=== PATIENT | female | born 1995 | race Caucasian/White ===

== ENCOUNTER 2020-12-21 11:55 | Emergency (ER) | payer MEDICAID, SELFPAY ==
[2020-12-21 12:00] VITALS: BP 136/77; PULSE 89; RESP 16; TEMP 36.6; O2SAT 100; BMI 36.6
--- NOTE | 2020-12-21 12:19 | ED_ITS ---
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 Patient denies any vomiting, headache, photophobia, abdominal pain or chest pain. She tells me that she has dizziness when she moves her head from right to left. No ear pain, nasal congestion, rhinorrhea or sneezing. No injury or trauma. Related Data Previous Rx's Medication Instructions Recorded meclizine 25 mg PO TID PRN #10 tab 12/21/20 Allergies Allergy/AdvReac Type Severity Reaction Status Date / Time No Known Allergies Allergy Verified 12/21/20 12:02 Review of Systems Review of Systems: Yes all other systems are reviewed and are negative Constitutional: Constitutional: Reports no additional constitutional complaints, Denies body ache(s), Denies chills, Denies fever(s), Denies headache(s) and Denies weakness Eyes: Eyes: Reports no additional eye complaints and Denies change in vision ENT: Reports system reviewed and no additional complaints, except as documented, Reports dizziness, Denies headache(s), Denies nasal congestion, Den ies nasal discharge and Denies neck pain Cardiovascular: Cardiovascular: Reports no additional cardiovascular complaints, Denies chest pain, Denies leg edema and Denies dyspnea Respiratory: Respiratory: Reports no additional respiratory complaints, Denies cough and Denies dyspnea Gastrointestinal: Gastrointestinal: Reports no additional gastrointestinal complaints, Denies abdominal pain, Denies diarrhea, Reports nausea and Denies vomiting Genitourinary: Genitourinary: Reports no additional female genitourinary complaints and Denies urinary incontinence Musculoskeletal: Musculoskeletal: Reports no additional musculoskeletal com plaints, Denies back pain, Denies arthralgias, Denies joint swelling, Denies neck pain, Denies numbness and Denies tingling Integumentary/Breasts: Skin/Breast: Reports system reviewed and no additional complaints, except as docu and Denies rash Neurologic: Reports system reviewed and no additional complaints, except as documented, Denies Abnormal speech present, Reports dizziness, Denies headache(s), Denies numbness, Denies tingling and Denies weakness [facility] Past Medical History Attestation statement: The following information was validated with the patient. Source: old records reviewed and nursing notes reviewed Medical History No known health problems Social History Social History Alcohol intake: never Smoking Status: Never smoker Use of substances other than those prescribed or required for medical reasons: No Advance Directives: No Advance Directives Information Provided: No Patient : No Physical Exam Vital Signs: Vital Signs: Last Vital Signs Temp 97.8 F 12/21/20 12:00 Pulse 78 12/21/20 15:17 Resp 16 12/21/20 15:17 BP 125/59 L 12/21/20 15:17 Pulse Ox 99 12/21/20 15:17 Body Mass Index 36.6 Const: General: cooperative, healthy appearing, comfortable and no acute distress Orientation/consciousness: patient oriented x3 Limitations: no limitations HENMT: Head: Yes normal to inspection Ears: hearing grossly normal bilaterally General nose exam: Normal external nose present Face and sinus: Yes normal facial exam Mouth: Normal oral and palatal mucosa present Throat: Yes posterior oropharynx normal Eyes: General: appearance normal, both eyes and all related structures Pupils: Equal, round and reactive pupils present Neck: Neck: Yes normal visual inspection Chest: Chest palpation & inspection: normal inspection of the chest Resp: Effort & Inspection: normal respiratory effort Auscultation: clear to auscultation bilaterally Cardio: Rate: regular rate Rhythm: regular rhythm Peripheral pulses: Peripheral pulses 2+ throughout GI: Inspection: Yes normal to inspection Palpation (GI): Soft to palpation and nontender Auscultation: normal bowel sounds Back/Spine/Pelvis: Thoracic/Lumbar Spine: thoracic and lumbar spine normal to inspection Skin: General skin exam: no rashes or lesions noted Neuro: General: patient oriented x3, no focal motor deficits and normal sensation to monofilament Cranial nerves: Yes CN's II-XII intact bilaterally, Yes Equal, round and reactive pupils present, Yes Bilaterally intact EOM present, Yes Nystagmus not present, Yes Normal facial strength present and Yes Midline tongue present Cognition (Neuro): normal cognition Speech: No Abnormal speech present Gait exam (Neuro): Normal gait present Motor exam (neuro): 5/5 motor strength present throughout Sensory Exam: Normal double simultaneous stimulation for sensation Coordination: [id number] test normal, [id number] test normal and tandem gait normal Extrem: General: Yes normal to inspection, Yes no pedal edema and Yes no calf tenderness Course Course Course Narrative: 25-year-old female here with dizziness which occurs with head movement and nausea since yesterday. Normal neurological exam with no focal deficit. Stable vital signs. Likely BPPV. Will check EKG, orthostatics, UA, urine and labs. Give meclizine and reassess. 1401-EKG unremarkable. Orthostatics negative. UA shows 3+ blood but patient currently on her menses. Urine negative. Labs unremarkable. 1500-performed a Cordell-Hallpike and Eboni maneuver with complete resolution of symptoms. C/w with BPPV. Discussed findings with patient. Comfortable with discharge home. Procedures Procedure Narrative Procedure Narrative: Anderson hallpike done with noted horizontal nystagmus after 30 seconds. Eply done after. MDM - Dizziness MDM Narrative Medical decision making narrative: BPPV, electrolyte abnormality, anemia, Medical Records Attestation: I reviewed the patient's medical records. Lab Data Attestation: I reviewed the patient's lab results. Result diagrams: 12/21/20 13:15 12/21/20 13:15 Labs: Lab Results 12/21/20 12/21/20 12/21/20 Range/Units 12:10 12:10 13:15 WBC 8.8 (4.8-10.8) X10*3/uL RBC 4.27 (4.20-5.50) X10*6/uL Hgb 10.6 L (12.0-16.0) g/dl Hct 34.4 L (37-47) % MCV 80.6 (80-98) fL MCH 24.8 L (27.0-33.0) pg MCHC 30.8 L (31.0-35.0) g/dl RDW 14.4 (11.0-16.0) % Plt Count 341 (160-400) X10*3/uL MPV 10.0 (9.4-12.3) fL Immature Gran % (Auto) 0.5 H (0.0-0.4) % Neut % (Auto) 74.5 H (45-73) % Lymph % (Auto) 19.7 L (20-40) % [place] % (Auto) 4.0 (2-11) % Eos % (Auto) 1.0 (0-4) % Baso % (Auto) 0.3 (0-2) % Lymph # (Auto) 1.7 (1.2-4.9) X10*3/uL [place] # (Auto) 0.4 (0.1-1.2) X10*3/uL Eos # (Auto) 0.1 (0.0-0.4) X10*3/uL Baso # (Auto) 0.0 (0.0-0.2) X10*3/uL Abs Immat Gran (auto) 0.04 H (0.00-0.03) X10*3/uL Absolute Neuts (auto) 6.5 (2.0-8.3) X10*3/uL Absolute Nucleated RBC 0.000 (0.0-0.012) X10*3/uL Nucleated RBC % (auto) 0.0 (0.0-0.2) /100WBC Hold Blue Top Sodium (135-145) mmol/L Potassium (3.3-5.1) mmol/L Chloride (96-108) mmol/L Carbon Dioxide (22-29) mmol/L Anion Gap (12-20) BUN (9-16) mg/dL Creatinine (0.5-1.4) mg/dL Estim Creat Clear Calc Estimated GFR Random Glucose (60-115) mg/dL Calcium (8.4-10.2) mg/dL Magnesium (1.6-2.6) mg/dL Total Bilirubin (0.0-1.0) mg/dL Direct Bilirubin (0.0-0.5) mg/dL AST (5-31) U/L ALT (0-31) U/L Alkaline Phosphatase (39-117) U/L Total Protein (6.5-8.0) g/dL Albumin (3.5-5.0) g/dL Urine Color YELLOW Urine Appearance CLOUDY Urine pH 6.0 (5.0-8.0) Ur Specific [place] >= 1.030 H (1.005-1.025) Urine Protein TRACE (NEG-TRACE) MG/DL Urine Glucose (UA) NEG (NEG) MG/DL Urine Ketones NEG (NEG) MG/DL Urine Blood 3+ H (NEG) Urine Nitrite NEG (NEG) Ur Leukocyte Esterase NEG (NEG) Urine RBC 30-49 H (0) /HPF Urine WBC 0-2 (0-4) /HPF Ur Squamous Epith Cells 2+ /LPF Urine Bacteria TRACE /LPF Urine Mucus TRACE /LPF Urine Test NEGATIVE (NEGATIVE) 12/21/20 12/21/20 Range/Units 13:15 13:15 WBC (4.8-10.8) X10*3/uL RBC (4.20-5.50) X10*6/uL Hgb (12.0-16.0) g/dl Hct (37-47) % MCV (80-98) fL MCH (27.0-33.0) pg MCHC (31.0-35.0) g/dl RDW (11.0-16.0) % Plt Count (160-400) X10*3/uL MPV (9.4-12.3) fL Immature Gran % (Auto) (0.0-0.4) % Neut % (Auto) (45-73) % Lymph % (Auto) (20-40) % [place] % (Auto) (2-11) % Eos % (Auto) (0-4) % Baso % (Auto) (0-2) % Lymph # (Auto) (1.2-4.9) X10*3/uL [place] # (Auto) (0.1-1.2) X10*3/uL Eos # (Auto) (0.0-0.4) X10*3/uL Baso # (Auto) (0.0-0.2) X10*3/uL Abs Immat Gran (auto) (0.00-0.03) X10*3/uL Absolute Neuts (auto) (2.0-8.3) X10*3/uL Absolute Nucleated RBC (0.0-0.012) X10*3/uL Nucleated RBC % (auto) (0.0-0.2) /100WBC Hold Blue Top SEE NOTE Sodium 141 (135-145) mmol/L Potassium 4.0 (3.3-5.1) mmol/L Chloride 107 (96-108) mmol/L Carbon Dioxide 27 (22-29) mmol/L Anion Gap 11 L (12-20) BUN 7 L (9-16) mg/dL Creatinine 0.74 (0.5-1.4) mg/dL Estim Creat Clear Calc 122.7 Estimated GFR > 60 Random Glucose 95 (60-115) mg/dL Calcium 9.1 (8.4-10.2) mg/dL Magnesium 2.2 (1.6-2.6) mg/dL Total Bilirubin 0.6 (0.0-1.0) mg/dL Direct Bilirubin 0.2 (0.0-0.5) mg/dL AST 14 (5-31) U/L ALT 14 (0-31) U/L Alkaline Phosphatase 84 (39-117) U/L Total Protein 7.4 (6.5-8.0) g/dL Albumin 4.1 (3.5-5.0) g/dL Urine Color Urine Appearance Urine pH (5.0-8.0) Ur Specific [place] (1.005-1.025) Urine Protein (NEG-TRACE) MG/DL Urine Glucose (UA) (NEG) MG/DL Urine Ketones (NEG) MG/DL Urine Blood (NEG) Urine Nitrite (NEG) Ur Leukocyte Esterase (NEG) Urine RBC (0) /HPF Urine WBC (0-4) /HPF Ur Squamous Epith Cells /LPF Urine Bacteria /LPF Urine Mucus /LPF Urine Test (NEGATIVE) ECG Data Attestation: I personally reviewed and interpreted this ECG as follows: ECG interpretation date: 12/21/20 ECG interpretation time: 12:36 Interpretation: Normal sinus rhythm with a rate of 73, normal NV, normal QRS normal QTC Discharge Plan Discharge Clinical Impression: Benign paroxysmal positional vertigo Patient Disposition: Home, Self-Care Instructions: Benign Paroxysmal Positional Vertigo (ED) Prescriptions: New meclizine 25 mg tablet 25 mg PO TID PRN (Reason: dizziness) Qty: 10 RF: 0 Referrals: [place],[facility] [Primary Care Provider] - 2 days Stand Alone Forms: Work/School Release Interventions: ED Discharge Assessment Last Done: 12/21/20 15:26 Discharge Date/Time: 12/21/20 15:27 Print Language: [place] Citizen
--- NOTE | 2020-12-21 12:22 | ECG_ITS ---
Test Reason : DIZZINESS Blood Pressure : / mmHG Vent. Rate : 073 BPM Atrial Rate : 073 BPM P-R Int : 124 ms QRS Dur : 082 ms QT Int : 418 ms P-R-T Axes : 026 037 -04 degrees QTc Int : 460 ms Normal sinus rhythm Normal ECG No previous ECGs available Referred By: Kiana Sherman Electronically Signed By:Jacky Israel
[2020-12-21 12:37] VITALS: BP 124/68; PULSE 79
[2020-12-21 12:38] VITALS: BP 116/79; BP 121/71; PULSE 77; PULSE 84
[2020-12-21 12:49] LABS: Glucose Urine UA NEG (NEG); Leukocyte Esterase Urine NEG (NEG); Nitrite Urine NEG (NEG); Specific Gravity - Urine >= 1.030 (1.005-1.025); Urine Blood 3+ (NEG); Urine Ketones NEG (NEG); Urine Protein TRACE MG/DL (NEG-TRACE)
[2020-12-21 12:51] LABS: Appearance Urine CLOUDY; Color Urine YELLOW
[2020-12-21 12:54] LABS: UPreg QC Valid YES; Urine Pregnancy NEGATIVE (NEGATIVE)
[2020-12-21 13:02] LABS: Bacteria Urine TRACE /LPF; Mucus Urine TRACE /LPF; RBC Urine 30-49 /HPF (0); Squamous Epithelial Cell Urine 2+ /LPF; WBC Urine 0-2 /HPF (0-4)
[2020-12-21 13:19] LABS: MANUAL DIFF FLAG NO
[2020-12-21 13:21] LABS: Basophils Percent Auto 0.3 % (0-2); Eosinophils Absolute Auto 0.1 X10*3/uL (0.0-0.4); Hematocrit 34.4 % (37-47); Hemoglobin 10.6 g/dl (12.0-16.0); Imm Gran Abs Auto 0.04 X10*3/uL (0.00-0.03); Imm Gran Pct Auto 0.5 % (0.0-0.4); Lymphocytes Absolute Auto 1.7 X10*3/uL (1.2-4.9); Lymphocytes Percent Auto 19.7 % (20-40); Mean Corpuscular HGB Conc 30.8 g/dl (31.0-35.0); Mean Corpuscular Hemoglobin 24.8 pg (27.0-33.0); Mean Corpuscular Volume 80.6 fL (80-98); Monocytes Absolute Auto 0.4 X10*3/uL (0.1-1.2); Neutrophils Absolute Auto 6.5 X10*3/uL (2.0-8.3); Neutrophils Percent Auto 74.5 % (45-73); Platelet Count 341 X10*3/uL (160-400); Red Blood Count 4.27 X10*6/uL (4.20-5.50); Red Cell Distribution Width 14.4 % (11.0-16.0); White Blood Count 8.8 X10*3/uL (4.8-10.8)
[2020-12-21 13:49] LABS: Alanine Aminotransferase 14 U/L (0-31); Albumin Level 4.1 g/dL (3.5-5.0); Alkaline Phosphatase 84 U/L (39-117); Anion Gap 11 (12-20); Aspartate Amino Transferase 14 U/L (5-31); Bilirubin Direct 0.2 mg/dL (0.0-0.5); Bilirubin Total 0.6 mg/dL (0.0-1.0); Blood Urea Nitrogen 7 mg/dL (9-16); Calcium 9.1 mg/dL (8.4-10.2); Carbon Dioxide 27 mmol/L (22-29); Chloride 107 mmol/L (96-108); Creatinine Clr Calc Pharmacy 122.7; Estimated Glomerular Filt Rate > 60; Glucose Random 95 mg/dL (60-115); Magnesium 2.2 mg/dL (1.6-2.6); Sodium 141 mmol/L (135-145); Total Protein 7.4 g/dL (6.5-8.0)
[2020-12-21] MEDS: Meclizine HCl 25 MG TABLET PO (14:01)
[2020-12-21 15:16] VITALS: BP 125/58; PULSE 78
[2020-12-21 15:17] VITALS: BP 112/54; BP 123/54; BP 125/59; PULSE 78; PULSE 80; PULSE 90; RESP 16; O2SAT 99
== END 2020-12-21 15:27 | disposition home or self-care (01) ==
PROVIDERS: Nurse Practitioner Family; Emergency Provider Emergency Medicine
DX: H81.10 Benign paroxysmal vertigo, unspecified ear (principal)
CPT/HCPCS: 36415; 80048; 80076; 81001; 81025; 83735; 85025; 93005; 99283; 99285

== ENCOUNTER 2025-02-11 03:16 | Emergency (ER) | payer MEDICAID, SELFPAY ==
[2025-02-11 03:19] VITALS: BP 120/69; PULSE 99; RESP 20; TEMP 36.1; O2SAT 100; BMI 39.0
[2025-02-11 03:52] LABS: IDNOW Serial# 6674DD1D; Strep A Nucleic Acid Positive (Negative)
--- NOTE | 2025-02-11 04:06 | ED_ITS ---
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 She notes it is painful to swallow and she has pain radiating to ears. She does have children but she sta nayeli no one else is sick complaint: sore throat Onset (ago): week(s) (1) Location: mouth Radiation: non-radiation Severity: moderate Quality: aching Pain Consistency: constant Relieving factors: none Exacerbating factors: other (swallowing) Associated symptoms: malaise Treatments prior to arrival: none Related Data Previous Rx's ?Medication ?Instructions ?Recorded meclizine 25 mg tablet 25 mg PO TID PRN dizziness # 10 tabs 12/21/20 amoxicillin 500 mg tablet 500 mg PO BID #19 tabs 02/11 Allergies Allergy/AdvReac Type Severity Reaction Status Date / Time No Known Allergies Allergy Verified 02/11/25 03:21 Review of Systems Review of Systems: Constitutional : No Fever, No Chills, No Fatigue ENT/Mouth :pos sore throat, No Rhinorrhea Eyes: No Eye Pain, No Swelling, No Redness Cardiovascular : No Chest Pain, No SOB, No Dyspnea on Exertion Respiratory : No Cough, No Sputum Gastrointestinal : No Nausea, No Vomiting, No Diarrhea, No abdominal Pain Genitourinary : No Dysuria, No Urinary Frequency, No Hematuria, Musculoskeletal : No joint pain, No Myalgias, No Joint Swelling Skin : No Skin Lesions, No rash Neuro : No Weakness, No Numbness, No Dizziness, no Headache All other systems reviewed and are negative [facility] Past Medical History Attestation statement: The following information was validated with the patient. Source: old records reviewed Medical History No known health problems Social History Social History (Updated 02/11/25 @ 04:20 by Vy Hylton DO) Alcohol intake: never Patient Tobacco Use Status: Never used Tobacco Physical Exam ED Vital Signs: Vital Signs - 24 hr 02/11/25 03:19 Temperature 97.0 F Pulse Rate 99 Respiratory Rate 20 Blood Pressure 120/69 Pulse Oximetry 100 Oxygen Delivery Method Room Air BMI result Body Mass Index 39.0 Appearance: Alert. Oriented X3. No acute distress. Eyes: Pupils equal, round and reactive to light. ENT: Pharynx erythema moderate swelling both tonsils mild exudates, no stridor, no drooling, uvula is midline, bilateral tender LAD in neck, can look up to ceiling Neck: Normal inspection. Neck supple. CVS: Normal heart rate and rhythm. Pulses normal. Respiratory: No respiratory distress. Breath sounds normal. Abdomen: Soft and nontender. Skin: Skin warm and dry. Normal skin color. Normal skin turgor. Extremities: No lower extremity edema. No calf ttp Neuro: Oriented X 3. No motor deficit. No sensory deficit. 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 Differential Diagnosis Differential Diagnoses: The differential diagnosis associated with the presentation includes strep throat, pharyngitis Admission/Observation Consideration of admission/observation: Escalation of care including admission/observation considered not toxic can be managed as an outpatient Lab Data [facility] Lab Attestation statement: I reviewed the patient's lab results. Labs: Lab Results 02/11/25 Range/Units 03:34 S. pyogenes GrpA TOSHA Positive A (Negative) External Record Review External record reviewed: Outpatient record Prescription Management I considered prescription management with: Antibiotic Discharge Plan Discharge Clinical Impression: Strep throat Patient Disposition: Home, Self-Care Instructions: Strep Throat (ED) Additional Instructions: throw away toothbrush in 24 hours stay hydrated take antibiotic with food return for worsening symptoms or any other concerns On amoxicillin, softer bowel movements are to be expected. Call your provider if you move your bowels more than 4 times a day, your bowel movements are almost all liquid, or you get a rash.? Prescriptions: New amoxicillin 500 mg tablet 500 mg PO BID Qty: 19 0RF No Action meclizine 25 mg tablet 25 mg PO TID PRN (Reason: dizziness) Qty: 10 0RF Stand Alone Forms: Work/School Release Print Language: [place]er
--- OUTSIDE RECORDS SUMMARY | 2025-02-11 04:08 | XMS_ITS | Clinical Summary ---
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 Name Role Phone Unavailable Primary Care Provider Unavailabl e Social History Tobacco Use Types Packs/Day Years Used Date Smoking Tobacco: Never Assessed Comments Unknown Sex and Gender Information Value Date Recorded Sex Assigned at Female 06/12/2022 10:40 AM EDT Legal Sex Female 10:40 AM EDT Gender Identity Female 06/12/2022 10:40 AM EDT Sexual Orientation Straight 06/12/2022 10 :40 AM EDT Last Filed Vital Signs Vital Sign Reading Time Taken Comments Blood Pressure 122/80 02/08/2022 12:06 AM EDT Pulse 68 02/08/2022 12:06 AM EDT Temperature - - Respiratory Rate - - Oxygen Saturation - - Inhaled Oxygen Concentration - - Weight 105 kg (232 lb 3.2 oz) 02/08/2022 12:06 A M EDT Height 161 cm (5' 3.38 ) 02/08/2022 12:06 AM EDT Body Mass Index 40.64 02/08/2022 12:06 AM EDT Plan of Treatment Health Maintenance Due Date Last Done Comments Depression Screening 1996 HIV Screening 1996 Disability Screening 1996 Alcohol/Substance Use Screening 2008 Tobacco Screening 2008 Family Planning (PISQ) 2011 Hepatitis C Screening 2014 DTaP/Tdap/Td Vaccines (1 - Tdap) 2015 Hepatitis B Vaccines (1 of 3 - 19+ 3-dose series) 2015 Pap Smear 2017 COVID-19 Vaccine ( - 2023-2 5 season) 2024 Influenza Vaccine (#1) 2025 Zoster Vaccines (1 of 2) 2046 RSV Patients and Pa tients Aged 60 years or older (1 - 1-dose 75+ series) 2071 HIB Vaccines Aged Out No longer eligi ble based on patient's age to complete this topic HPV Vaccines Aged Out No longer eligi ble based on patient's age to complete this topic Hepatitis A Vaccines Aged Out No long er eligible based on patient's age to complete this topic IPV Vaccines Aged Out No longer eligi ble based on patient's age to complete this topic Meningococcal B Vaccine Aged Out No l onger eligible based on patient's age to complete this topic Meningococcal Vaccine Aged Out No izzy anshu eligible based on patient's age to complete this topic Pneumococcal Vaccine: Pediat rics (0 to 5 Years) and At-Risk Patients (6 to 49) Years Aged Out No longer eligible b ased on patient's age to complete this topic RSV under 20 months Aged Out No longe r eligible based on patient's age to complete this topic Rotavirus Vaccines Aged Out No longer eligible based on patient's age to complete this topic
--- OUTSIDE RECORDS SUMMARY | 2025-02-11 04:08 | XMS_ITS | Encounter Summary ---
Author Organization [facility] Address [address] [place] [address] Care Team Providers Care Land Economist Name Role Phone Unknown Primary Care Provider [phone] Ami Mancuso MD Unavailable [phone] Encounter Details Date Type Department Care Team (Late st Contact Info) Description 02/20/2020 Abstract [facility] Maternal Medicine [place] [address] [place] [id number] Kim Crane, MS,[facility] [address] [place] [address] Social History Tobacco Use Types Packs/Day Years Used Date Smoking Tobacco: Never Assessed Comments Yes Sex and Gender Information Value Date Recorded Sex Assigned at Not on file Legal Sex Female 10:25 AM EDT Gender Identity Not on file Sexual Orientation Not on file COVID-19 Exposure Response Date Recorded In the last month, have you been in contact with someone who was confirmed or suspected to have Coronavirus / COVID-19? Unable to assess 02/20/2020 1:45 PM EDT documented as of this encounter Plan of Treatment Not on file documented as of this encounter Visit Diagnoses Not on filedocumented in this encounter Care Teams Land Economist Relationship Specialty Start Date End Date Unknown Unknow Provider Address PCP - General 02/20/20 Ami Mancuso MD [address] [place] [id number] PCP - OBGYN Obstetrics and Gynecology 02/20/20 documented as of this encounter
[2025-02-11] MEDS: Ibuprofen Oral Susp 200 MG/10 ML ORAL.SUSP 400 MG PO (04:12)
[2025-02-11 04:16] VITALS: BP 124/73; PULSE 82; RESP 16; TEMP 36.6; O2SAT 99
== END 2025-02-11 04:18 | disposition home or self-care (01) ==
PROVIDERS: Emergency Provider Emergency Medicine
DX: J02.0 Streptococcal pharyngitis (principal); B95.0 Streptococcus, group A, as the cause of diseases classified elsewhere; H92.03 Otalgia, bilateral
CPT/HCPCS: 87651; 99283; J1100

== ENCOUNTER 2025-05-07 13:50 | Outpatient (REF) | payer MEDICAID, SELFPAY ==
--- OUTSIDE RECORDS SUMMARY | 2025-05-07 13:00 | XMS_ITS | Encounter Summary ---
Author Organization [employer] Address [address] [facility] [address] [place] [address] Care Team Providers Care Electrician Helper [employer] Name Role Phone Carolyn Robert Primary Care Provider [phone] Encounter Details Date Type Department Care Team ([facility] st Contact Info) Description 05/07/2025 1:00 PM EDT Office Visit [facility] [address] [place] [address] Carolyn Robert FNP [address] [place] [address] Encounter for immunization (Primary Dx); Adult wellness visit Social History Tobacco Use Types Packs/Day Years Used Date Smoking Tobacco: Never Passive Smoke Exposure: Never Smokeless Tobacco: Never Tobacco Cessation:Counseling Given: Not Answered Depression Answer Date Recorded Patient Health Questionnaire-9 Score 2 05/07/2025 Patient Health Questionnaire-9 Score 2 05/07/2025 Last PHQ-9: Questionnaire Data Not on file 0 05/07/2025 Housing Stability Answer Date Recorded What is your housing situation today? I have [facility] 05/07/[address] you li ve. Do you have problems with any of the following? None of the above 05/07/2025 Food Insecurity Answer Date Recorded Within the past 12 months, y ou worried that your food would run out before you got money to buy more: Never True 05/07/2025 Within the past 12 months,th e food you bought just didn't last and you didn't have enough money to get more: Never True Transportation Answer Date Recorded In the past 12 months, has l ack of transportation kept you from medical appts, meetings, work or from getting things needed for daily living? No 05/07/2025 Utilities Answer Date Recorded In the past 12 months, has t he electric, gas, oil or water company threatened to shut off services in your home? No 05/07/2025 Depression Answer Date Recorded Patient Health Questionnaire-2 Score 1 05/07/2025 Internet Access Answer Date Recorded Internet Access Q1 Yes 05/07/2025 Internet Access Q2 Not on file 05/07/2025 Comments Unknown Sex and Gender Information Value Date Recorded Sex Assigned at Female 06/12/2022 10:40 AM EDT Legal Sex Female 10:40 AM EDT Gender Identity Female 06/12/2022 10:40 AM EDT Sexual Orientation Straight 06/12/2022 10 :40 AM EDT documented as of this encounter Last Filed Vital Signs Vital Sign Reading Time Taken Comments Blood Pressure 118/74 05/07/2025 1:01 PM EDT Pulse 103 05/07/2025 1:01 PM EDT Temperature 36.9 C (98.4 F) 05/07/2025 1:01 PM EDT Respiratory Rate 16 05/07/2025 1:01 PM EDT Oxygen Saturation 99% 05/07/2025 1:01 PM EDT Inhaled Oxygen Concentration - - Weight 102 kg (225 lb 2 oz) 05/07/2025 1:01 PM E DT Height 160.5 cm (5' 3.19 ) 05/07/2025 1:01 PM ED T Body Mass Index 39.64 05/07/2025 1:01 PM EDT documented in this encounter Functional Status * Over the past 2 weeks, how often have you been bothered by any of the following problems? Question Answer Date of Assessment Author Patient Health Questionnaire -2 Score 1 05/07/2025 1:44 PM EDT Gila Yoon MA * Little interest or pleasure in doing things Answer Date of Assessment Author Several days 05/07/2025 1:44 PM EDT Gila Slater MA * Feeling down, depressed, or hopeless Answer Date of Assessment Author Not at all 05/07/2025 1:44 PM EDT Gila Slater MA * Trouble falling or staying asleep, or sleeping too much Answer Date of Assessment Author Not at all 05/07/2025 1:44 PM EDT Gila Slater MA * Feeling tired or having little energy Answer Date of Assessment Author Several days 05/07/2025 1:44 PM EDT Gila Slater MA * Poor appetite or overeating Answer Date of Assessment Author Not at all 05/07/2025 1:44 PM EDT Gila Slater MA * Feeling bad about yourself - or that you are a failure or have let yourself or your family down Answer Date of Assessment Author Not at all 05/07/2025 1:44 PM EDT Gila Slater MA * Trouble concentrating on things, such as reading the newspaper or watching television Answer Date of Assessment Author Not at all 05/07/2025 1:44 PM EDT Gila Slater MA * Moving or speaking so slowly that other people could have noticed? Or the opposite - being so fidgety or restless that you have been moving around a lot more than usual. Answer Date of Assessment Author Not at all 05/07/2025 1:44 PM EDT Gila Slater MA * Thoughts that you would be better off or hurting yourself in some way Answer Date of Assessment Author Not at all 05/07/2025 1:44 PM EDT Gila Slater MA * Patient Health Questionnaire-9 Score Answer Date of Assessment Author 2 05/07/2025 1:44 PM EDT Gila Slater MA * How difficult have these problems made it for you to do your work, take care of things at home, or get along with other people? Answer Date of Assessment Author Not difficult at all 05/07/2025 1:44 PM EDT Gila Farrell MA * Over the last 2 weeks, how often have you been bothered by any of the following problems? Question Answer Date of Assessment Author Feeling nervous, anxious, or on edge 1 05/07/2025 1:44 PM EDT Gila Yoon MA Not being able to stop or control worrying 0 05/07/2025 1:44 PM EDT Gila Yoon MA Worrying too much about different things 0 05/07/2025 1:44 PM EDT Gila Yoon MA Trouble relaxing 0 05/07/2025 1:44 PM EDT Gila Davis MA Being so restless that it is hard to sit still 0 05/07/2025 1:44 PM EDT Gila Yoon MA Becoming easily annoyed or irritable 1 05/07/2025 1:44 PM EDT Gila Yoon MA Feeling afraid as if somethi ng awful might happen 0 05/07/2025 1:44 PM EDT Gila Yoon MA MAGUI-7 Total Score 2 05/07/2025 1:44 PM EDT Gila Yoon MA documented as of this encounter Plan of Treatment Upcoming Encounters Date Type Department Care Team (Late st Contact Info) Description 06/04/2025 10:30 AM EDT Procedure Visit [facility] [address] [place] [address] Mela Chin CNM [address] [place] [address] Scheduled Orders Name Type Priority Associated Diagnoses Orde r Schedule Comprehensive Metabolic Panel Lab Routine Adult wellness visit Expected: 05/07/2025 (Approximate), Expires: 05/06/2026 Hepatitis B Core Antibody, Total Lab Routine Adult wellness visit Expected: 05/07/2025 (Approximate), Expires: 05/06/2026 TSH Lab Routine Adult wellness visit Expected: 05/07/2025 (Approximate), Expires: 05/06/2026 Hepatitis B Surface Antibody, Qualitative Lab Routine Adult wellness visit Expected: 05/07/2025 (Approximate), Expires: 05/06/2026 Hepatitis B surface antigen, EIA Lab Routine Adult wellness visit Expected: 05/07/2025 (Approximate), Expires: 05/06/2026 Hepatitis C Antibody with Reflex to HCV, RNA, Quantitative, Real-Time PCR Lab Routine Adult wellness visit Expected: 05/07/2025, Expires: 05/06/2026 HIV-1/2 Antigen and Antibodies, Fourth Generation, with Reflexes Lab Routine Adult wellness visit Expected: 05/07/2025 (Approximate), Expires: 05/06/2026 Lipid Panel, Standard Lab Routine Adult wellness visit Expected: 05/07/2025 (Approximate), Expires: 05/06/2026 documented as of this encounter Procedures Procedure Name Priority Date/Time Associated Diagnosis Comments CHLAMYDIA/TRICHOMONAS /NEISSERIA GONORRHOEAE, PCR, URINE Routine 05/07/2025 1:55 PM EDT Adult wellness visit CBC WITH AUTO DIFFERENTIAL Routine 05/07/2025 1:55 PM EDT Adult wellness visit HEMOGLOBIN A1C Routine 05/07/2025 1:55 PM EDT Adult wellness visit documented in this encounter Results * Chlamydia/N. Gonorrhoeae, PCR, Urine (05/07/2025 1:55 PM EDT) CT PCR, Urine NOT DETECTED Not Detect. [facility] Comment:A not detected test result does not exclude the possibilityof infection because test results can be affected byimproper specimen collection, concurrent antibiotic therapy,or the number of organisms in the specimen which may bebelow the sensitivity of the test. As with many diagnostictests, results from the Xpert CT/NG assay should beinterpreted in conjunction with other laboratory andclinical data available to the clinician.The Xpert CT/NG assay should not be used for the evaluationof suspected sexual abuse or for other medico-legalindications. Additional testing is recommended in anycircumstance when false positive or false negative resultscould lead to adverse medical, social or psychologicalconsequences. NG PCR, Urine NOT DETECTED Not Detect. [facility] Comment:A not detected test result does not exclude the possibilityof infection because test results can be affected byimproper specimen collection, concurrent antibiotic therapy,or the number of organisms in the specimen which may bebelow the sensitivity of the test. As with many diagnostictests, results from the Xpert CT/NG assay should beinterpreted in conjunction with other laboratory andclinical data available to the clinician.The Xpert CT/NG assay should not be used for the evaluationof suspected sexual abuse or for other medico-legalindications. Additional testing is recommended in anycircumstance when false positive or false negative resultscould lead to adverse medical, social or psychologicalconsequences. Urine (Urine, Random) 05/07/2025 1:55 PM EDT 05/07/2025 4:00 PM EDT [facility] URINE ORDERABLES Final Res ult Performing Organization Address [facility] Co de Phone Number [facility] [address] [place] [address] [phone] * Hemoglobin A1c (05/07/2025 1:55 PM EDT) Hemoglobin A1c 4.9 <6.0 % [facility] Comment:Hemoglobin A1C Refer ence Range Adults: 4.8 - 6.0 % Non diabetic: < 6.0 % Goal: < 7.0 %Additional Action Suggested: > 8.0 %Note: Hemoglobin A1c results are invalid for patients with abnormal amounts of HbF. Blood transfusions may impact the HbA1c concentration in the patient sample. Estimated Average Glucose 94 mg/dL [facility] Comment:eAG = Estimated ave rage glucose which is %A1C expressed asaverage glucose, using the formula of the U2R-SjccuyzTjhfrlk Glucose study (ADAG), Diabetes Care, Vol.31,#8,Mar. 2007 Blood Venous blood specimen / Unknown 05/07/2025 1:55 PM EDT 05/07/2025 5:56 PM EDT [facility] BLOOD ORDERABLES Final Res ult Performing Organization Address [facility]/ZIP Co de Phone Number [facility] [address] [place] [phone] * (ABNORMAL) CBC auto differential (05/07/2025 1:55 PM EDT) White Blood Count 13.8(H) 4.8 - 10.8 X10*3/uL [facility] Red Blood Count 4.78 4.20 - 5.50 X10*6/uL [facility] Hemoglobin 8.9(L) 12.0 - 16.0 g/dl [facility] Hematocrit 31.4(L) 37.0 - 47.0 % [facility] Mean Corpuscular Volume 65.7(L) 80.0 - 98.0 fL [facility] Mean Corpuscular Hemoglobin 18.6(L) 27.0 - 33.0 pg [facility] Mean Corpuscular HGB Conc 28.3(L) 31.0 - 35.0 g/dl [facility] Red Cell Distribution Width 19.1(H) 11.0 - 16.0 % [facility] Platelet Count 553(H) 160 - 400 X10*3/uL [facility] Mean Platelet Volume 10.4 9.4 - 12.[address] [facility] Neutrophils Percent Auto 69.8 45 - 73 % [facility] Imm Gran Pct Auto 0.3 0.0 - 0.4 % [facility] Lymphocytes Percent Auto 23.3 20 - 40 % [facility] Monocytes Percent Auto 5.4 2 - 11 % [facility] Eosinophils Percent Auto 0.6 0 - 4 % [facility] Basophils Percent Auto 0.6 0 - 2 % [facility] NRBC Pct Auto 0.0 0.0 - 0.2 /100WBC [facility] Neutrophils Absolute Auto 9.7(H) 2.0 - 8.3 x10*3/uL [facility] Imm Gran Abs Auto 0.04(H) 0.00 - 0.03 X10*3/uL [facility] Lymphocytes Absolute Auto 3.2 1.2 - 4.9 X10*3/uL [facility] Monocytes Absolute Auto 0.7 0.1 - 1.2 X10*3/uL [facility] Eosinophils Absolute Auto 0.1 0.0 - 0.4 X10*3/uL [facility] Basophils Absolute Auto 0.1 0.0 - 0.2 X10*3/uL [facility] NRBC Abs Auto 0.000 0.0 - 0.012 X10*3/uL [facility] Blood Venous blood specimen / Unknown 05/07/2025 1:55 PM EDT 05/07/2025 5:56 PM EDT [facility] BLOOD ORDERABLES Final Res ult [facility] [address] [place] [phone] documented in this encounter Visit Diagnoses Diagnosis Encounter for immunization- Primary Adult wellness visit documented in this encounter Additional Health Concerns Assessment Noted Time PHQ-9 Depression Total Score: 2 05/07/20 25 1:44 PM EDT documented as of this encounter Care Teams Electrician Helper [employer]otive Relationship Specialty Start Date End Date Carolyn Robert FNP [address] [place] [phone] PCP - General Family Medicine 05/06/25 documented as of this encounter
[2025-05-07 17:54] LABS: CT PCR Urine NOT DETECTED (Not Detect.); NG PCR Urine NOT DETECTED (Not Detect.)
[2025-05-07 18:01] LABS: MANUAL DIFF FLAG NO
[2025-05-07 18:07] LABS: Hematocrit 31.4 % (37.0-47.0); Hemoglobin 8.9 g/dl (12.0-16.0); Imm Gran Abs Auto 0.04 X10*3/uL (0.00-0.03); Imm Gran Pct Auto 0.3 % (0.0-0.4); Lymphocytes Absolute Auto 3.2 X10*3/uL (1.2-4.9); Mean Corpuscular HGB Conc 28.3 g/dl (31.0-35.0); Mean Corpuscular Hemoglobin 18.6 pg (27.0-33.0); Mean Corpuscular Volume 65.7 fL (80.0-98.0); NRBC Abs Auto 0.000 X10*3/uL (0.0-0.012); NRBC Pct Auto 0.0 /100WBC (0.0-0.2); Platelet Count 553 X10*3/uL (160-400); Red Blood Count 4.78 X10*6/uL (4.20-5.50); White Blood Count 13.8 X10*3/uL (4.8-10.8)
--- OUTSIDE RECORDS SUMMARY | 2025-05-07 18:21 | XMS_ITS | Encounter Summary ---
Author Organization [employer] Address [address] [facility] [address] [place] [address] Care Team Providers Care Cable Testers Helper Name Role Phone Carolyn Robert FOX Primary Care Provider [phone] Encounter Details Date Type Department Care Team (Latest Contact Info) Description 05/07/2025 Travel Social History Tobacco Use Types Packs/Day Years Used Date Smoking Tobacco: Never Passive Smoke Exposure: Never Smokeless Tobacco: Never Depression Answer Date Recorded Patient Health Questionnaire-9 [...] AM EDT documented as of this encounter Functional Status * Over the [...] Description 06/04/2025 10:30 AM EDT Procedure Visit [facility] [address] [place] [address] Mela Chin CNM [address] [place] [address] documented as of this encounter Visit Diagnoses Not on filedocumented in this encounter Additional Health Concerns Assessment Noted Time PHQ-9 Depression Total Score: 2 05/07/20 1:44 PM EDT documented as of this encounter Care Teams Cable Testers Helper Relationship Specialty Start Date End Date Carolyn Robert FNP [address] [place] [address] PCP - General Family Medicine 05/06/25 documented as of this encounter
--- OUTSIDE RECORDS SUMMARY | 2025-05-07 18:21 | XMS_ITS | Clinical Summary ---
Author Organization [employer] Address [address] [place] [phone] Care Team Providers Care Drafter Marine Name Role Phone Carolyn Robert Primary Care Provider [phone] Allergies No known active allergies Medications No known medications Active Problems Problem Noted Date Diagnosed Date Maternal care for low transv erse scar from previous delivery 02/20/2020 Overview (05/07/2025): Added automatically from request for surgery [id number] Encounters Date Type Department Care Team Description 05/07/2025 1:00 PM EDT Office Visit [address] [address] Carolyn Robert FNP Encounter for immunization (Primary Dx); Adult wellness visit 05/07/2025 Travel 05/06/[address] [address] Carolyn Robert FNP CHARTPREP 04/30/2025 Patient Outreach [address] [address] Carolyn Robert FNP Pre-visit Planning ((Unable to reach for PVP screening, LVM) to be completed in office ) 04/07/[address] [address] Tucker Mcnair MD 03/10/[address] [address] Tucker Mcnair MD new pt appt 02/11/2025 Orders Only GENERIC EXTERNAL DATA DEPARTMENT Provider, Generic External Data from Last 3 Months Immunizations Immunization Administration Dates Next Due Influenza injectable quadrivalent preservative f ree 06/25/2022 MMR 06/24/2022 Tdap 2022 Family History Medical History Relation Name Comments Diabetes Brother Kidney disease Brother Eczema Daughter Diabetes Mother Hyperlipidemia Mother Hypertension Mother Kidney disease Mother Diabetes Sister Kidney disease Sister Eczema Son Relation Name Status Comments Brother Daughter Mother Sister Son Social History Tobacco Use Types Packs/Day Years [...] Mass Index 39.64 05/07/2025 1:01 PM EDT Plan of Treatment Upcoming Encounters Date Type Department Care Team (Late st Contact Info) Description 06/04/2025 10:30 AM EDT Procedure Visit [facility] [address] [place], [place] [phone] Mela Chin, [facility] [address] [place], [place] [phone] Health Maintenance Due Date Last Done Comments HIV Screening 1996 Disability Screening 1996 Family Planning (PISQ) 2011 HPV Vaccines (1 - 3-dose series) 2011 Hepatitis C Screening 2014 Hepatitis B Vaccines (1 of 3 - 19+ 3-dose series) 2015 Pap Smear 2017 COVID-19 Vaccine ( - 2023-2 5 season) 2025 Influenza Vaccine (#1) 2025 06/25/2022 Alcohol/Substance Use Screening 05/07/2026 05/07/2025 Depression Screening 05/07/2026 05/07/2025, 05/07/2025 SDOH Screening 05/07/2026 05/07/2025 Tobacco Screening 05/07/2026 05/07/2025 DTaP/Tdap/Td Vaccines (2 - T d or Tdap) 2032 2022 Zoster Vaccines (1 of 2) 2046 RSV Patients and Patients Aged 60 years or older (1 - [...] age to complete this topic Pneumococcal Vaccine: Pediatrics (0 to 5 Years) and At-Risk Patients (6 to 49) Years Aged Out No longer eligible b ased on patient's age to complete this topic RSV under 20 months Aged Out No longe r eligible based on patient's age to complete this topic Rotavirus Vaccines Aged Out No longer eligible based on patient's age to complete this topic Procedures Procedure Name Priority Date/Time Associated Diagnosis Comments HEMOGLOBIN A1C Routine 05/07/2025 1:55 PM EDT Adult wellness visit CBC WITH AUTO DIFFERENTIAL Routine 05/07/2025 1:55 PM EDT Adult wellness visit CHLAMYDIA/TRICHOMONAS /NEISSERIA GONORRHOEAE, PCR, URINE Routine 05/07/2025 1:55 PM EDT Adult wellness visit STREP A NUCLEIC ACID Routine 02/11/2025 3:34 AM EDT from Last 3 Months Results * Chlamydia/N. Gonorrhoeae, PCR, Urine (05/07/2025 1:55 PM EDT) CT PCR, Urine NOT DETECTED Not Detect. [facility] Comment:A not detected test result does [...] NG PCR, Urine NOT DETECTED Not Detect. [facility] Comment:A not detected test result does [...] PM EDT 05/07/2025 4:00 PM EDT Carolyn Robert [facility] URINE ORDERABLES Final Res ult [facility] [address] [place] [address] [phone] * (ABNORMAL) CBC auto differential (05/07/2025 1:55 PM EDT) White Blood Count 13.8(H) 4.8 - 10.8 X10*3/uL [facility] Red Blood Count 4.78 4.20 - 5.50 X10*6/uL [facility] Hemoglobin 8.9(L) 12.0 - 16.0 g/dl [facility] Hematocrit 31.4(L) 37.0 - 47.0 % [facility] Mean Corpuscular Volume 65.7(L) 80.0 - 98.0 fL [facility] Mean Corpuscular Hemoglobin 18.6(L) 27.0 - 33.0 pg [facility] Mean Corpuscular HGB Conc 28.3(L) 31.0 - 35.0 g/dl [facility] Red Cell Distribution Width 19.1(H) 11.0 - 16.0 % [facility] Platelet Count 553(H) 160 - 400 X10*3/uL [facility] Mean Platelet Volume 10.4 9.4 - 12.3 fL [facility] Neutrophils Percent Auto 69.8 45 - 73 % [facility] Imm Gran Pct Auto 0.3 0.0 - 0.4 % [facility] Lymphocytes Percent Auto 23.3 20 - 40 % [facility] Monocytes Percent Auto 5.4 2 - 11 % [facility] Eosinophils Percent Auto 0.6 0 - 4 % [facility] Basophils Percent Auto 0.6 0 - 2 % [facility] NRBC Pct Auto 0.0 0.0 - 0.2 /100WBC [facility] Neutrophils Absolute Auto 9.7(H) 2.0 - 8.3 x10*3/uL [facility] Imm Gran Abs Auto 0.04(H) 0.00 - 0.03 X10*3/uL [facility] Lymphocytes Absolute Auto 3.2 1.2 - 4.9 X10*3/uL [facility] Monocytes Absolute Auto 0.7 0.1 - 1.2 X10*3/uL [facility] Eosinophils Absolute Auto 0.1 0.0 - 0.4 X10*3/uL [facility] Basophils Absolute Auto 0.1 0.0 - 0.2 X10*3/uL [facility] NRBC Abs Auto 0.000 0.0 - 0.012 X10*3/uL [facility] Blood Venous blood specimen / Unknown 05/07/2025 1:55 PM EDT 05/07/2025 5:56 PM EDT us Carolyn Robert [employer] LAB BLOOD ORDERABLES Final Res ult [facility] [address] [place] [phone] [phone] * Hemoglobin A1c (05/07/2025 1:55 PM EDT) Hemoglobin A1c 4.9 <6.0 % [facility] Comment:Hemoglobin A1C Refer ence Range Adults: 4.8 - 6.0 % Non diabetic: < 6.0 % Goal: < 7.0 %Additional Action Suggested: > 8.0 %Note: Hemoglobin A1c results are invalid for patients with abnormal amounts of HbF. Blood transfusions may impact the HbA1c concentration in the patient sample. Estimated Average Glucose 94 mg/dL [facility] Comment:eAG = Estimated ave rage glucose which is %A1C expressed asaverage glucose, using the formula of the S5K-TagglfqQauxqqg Glucose study (ADAG), Diabetes Care, Vol.31,#8,2007 Blood Venous blood specimen / Unknown 05/07/2025 1:55 PM EDT 05/07/2025 5:56 PM EDT us Carolyn Robert [employer] T[employer] REPA[employer] LAB BLOOD ORDERABLES Final Res ult Performing Organization Address [facility]/ZIP Co de Phone Number [facility] [address] [place] [phone] * (ABNORMAL) Strep A Nucleic Acid (02/11/2025 3:34 AM EDT) IDNOW SERIAL# [id number] [facility] Strep A Nucleic Acid Positive(A ) Negative [facility] Comment:All test results mus t be correlated with clinical findings.This test has not been evaluated for monitoring treatment ofinfection.Additional follow-up testing using the culture method isrequired if the result is negative and clinical symptomspersist, or in the event of an acute rheumatic feveroutbreak. 02/11/2025 3:34 AM EDT 02/11/2025 3:50 AM EDT us Generic External Data Provider LAB MICROBIOLOGY - GENERAL ORDERABLES Final Result Performing Organization Address [facility]/ZIP Co de Phone Number [facility] [address] [place] [address] [phone] from Last [address] [place] [address] C3 Care Teams Drafter Marine Relationship Specialty Start Date End Date Carolyn Robert FNP [address] [place] [phone] PCP - General Family Medicine 05/06/25
--- OUTSIDE RECORDS SUMMARY | 2025-05-07 18:21 | XMS_ITS | Encounter Summary ---
Author Organization [facility] Address [address] [place] [address] Care Team Providers Care Cinnamon Grinder Name Role Phone Unknown Primary Care Provider [phone] Ami Mancuso MD Unavailable [phone] Encounter Details Date Type Department Care Team (Late st Contact Info) Description 02/20/2020 Abstract [facility] Maternal Medicine [place] [address] [facility] [address] [place] [phone] Kim Crane, MS,[facility] [address] [place] [address] Social History Tobacco Use Types Packs/Day Years [...] on filedocumented in this encounter Care Teams Cinnamon Grinder Relationship Specialty Start Date End Date Unknown Unknow Provider Address PCP - General 02/20/20 Ami Mancuso MD [address] [place] [phone] PCP - OBGYN Obstetrics and Gynecology 02/20/20 documented as of this encounter
--- OUTSIDE RECORDS SUMMARY | 2025-05-07 18:21 | XMS_ITS | Clinical Summary ---
Author Organization [facility] Address [address] [place] [address] Care Team Providers Care Solar Energy System Installer Helper Name Role Phone Unknown Primary Care Provider [phone] Ami Mancuso MD Unavailable [phone] Allergies No known active allergies Medications vitamin with iron and folic acid ( PLUS) 27-1 MG Tab Take 1 tablet by mouth daily. Active docusate sodium 100 MG CapIndications:P ostpartum care following delivery Take 100 mg by mouth 2 (two) times a day. 30 capsule 1 02/28/2020 Active HYDROmorphone (DILAUDID) 2 MG tabletIndication s: care following delivery Take 1 tablet (2 mg total) by mouth every 3 (three) hours as needed for severe pain. Max Daily Amount: 16 mg 10 tablet 02/28/2020 Active ibuprofen (MOTRIN) 600 MG tabletIndication s: care following delivery Take 1 tablet (600 mg total) by mouth every 6 (six) hours. 120 tablet 02/28/2020 Active norethindrone (MICRONOR) 0.35 MG tabletIndication s: care following delivery Take 1 tablet (0.35 mg total) by mouth daily. 28 tablet 1 02/28/2020 Active Active Problems Problem Noted Date Diagnosed Date Encounter for maternal care for low transverse scar from previous delivery 02/20/2020 Overview (02/20/2020): 02/20/2020 new transfer from [facility] 03[facility]. H/o prior c/s x 2 and hydrocephalus, needs repeat. Case request placed today, has new OB with us next week [facility] Maternal care due to low tra nsverse uterine scar from previous delivery 02/20/2020 Overview (02/20/2020): Added automatically from request for surgery [id number] hydrocephalus affectin g management of mother in foley 02/20/2020 Overview (02/20/2020): Added automatically from request for surgery [id number] Social History Tobacco Use Types Packs/Day Years Used Date Smoking Tobacco: Never Smokeless Tobacco: Never Alcohol Use Standard Drinks/Week Comments Never 0 (1 standard drink = 0.6 oz pur e alcohol) AUDIT-C Answer Date Recorded Q1: How often do you have a drink containing alc ohol? Never 02/25/2020 Average Number of Drinks Not on file 020 Frequency of Binge Drinking Not on file 02/10 Comments No Sex and Gender Information Value Date Recorded Sex Assigned at Not on file Legal Sex Female 10:25 AM EDT Gender Identity Not on file Sexual Orientation Not on file Last Filed Vital Signs Vital Sign Reading Time Taken Comments Blood Pressure 112/66 02/28/2020 8:13 AM EDT Pulse 72 02/28/2020 8:13 AM EDT Temperature 36.7 C (98.1 F) 02/28/2020 8:13 AM EDT Respiratory Rate 20 02/28/2020 8:13 AM EDT Oxygen Saturation 99% 02/28/2020 8:13 AM EDT Inhaled Oxygen Concentration - - Weight 104 kg (228 lb 4.8 oz) 02/25/2020 11:52 A M EDT Height 157.5 cm (5' 2 ) 02/25/2020 11:52 AM EDT Body Mass Index 41.76 02/25/2020 11:52 AM EDT Plan of Treatment Health Maintenance Due Date Last Done Comments Hepatitis C Virus Screening 1996 DTaP/Tdap/Td Vaccines (1 - Tdap) 2015 Hepatitis B Vaccines (1 of 3 - 19+ 3-dose series) 2015 Pap Smear (Ages 21-65) 2017 Influenza Vaccine 03/13/2025 COVID-19 Vaccine (1 - 2023-2 5 season) 2025 HIV Screening Completed 02/25/2020 HPV Vaccines (No Doses Required) Completed Pneumococcal Vaccine: Pediat brea (0-5 Years) and At-Risk Patients (6 to 49 Years) Aged Out No longer eligible b ased on patient's age to complete this topic Procedures Procedure Name Priority Date/Time Associated Diagnosis Comments RAPID HIV-1/2 AB AND P24 AG REFLEX TO CONFIRMATION STAT 02/25/2020 11:48 AM EDT from Last 3 Months or Most Recently Relevant to Health Maintenance Results * Rapid HIV Antibody and HIV Antigen (p24) (02/25/2020 11:48 AM EDT) HIV-1/2 Antibody Negative Negative [facility] HIV-1 Antigen (p24) Negative Negative [facility] Comment:Alere Determine HIV- 1/2 Ag/Ab Combo is a qualitative immunoassay for the detection of HIV-1/2 antibodies and p24 antigen. 02/25/2020 11:4 8 AM EDT 02/25/2020 12:30 PM EDT us Abebe Cristobal MD LAB BLOOD ORDERABLES Final Result [facility] from Last 3 Months or Most Recently Relevant to Health Maintenance Insurance [facility] Advance Directives * Full Code (Latest Code Status on File) Date Activated Date Inactivated Comments 02/25/2020 5:28 PM Care Teams Solar Energy System Installer Helper Relationship Specialty Start Date End Date Unknown Unknow Provider Address PCP - General 7/10/20 Ami Mancuso MD [address] [place] [id number] PCP - OBGYN Obstetrics and Gynecology 02/20/20
--- OUTSIDE RECORDS SUMMARY | 2025-05-07 18:21 | XMS_ITS | Encounter Summary ---
Author Organization [employer] Address [address] [place] [address] [address] [address] Care Team Providers Care Cashier Checker Name Role Phone Carolyn Robert Primary Care Provider [phone] Reason for Visit * Reason Onset Date Comments CHARTPREP 05/06/2025 Encounter Details Date Type Department Care Team ([facility] st Contact Info) Description 05/06/[address] [facility] MED[facility] [address] [place] [address] Carolyn Robert FNP [address] [place] [address] CHARTPREP Social History Tobacco Use Types Packs/Day Years Used Date Smoking Tobacco: Never Assessed Depression Answer Date Recorded Patient Health Questionnaire-9 [...] AM EDT documented as of this encounter Miscellaneous Notes * Telephone Encounter - Shara Hernández MA - 05/06/2025 9:31 AM EDT Chart Prep Labs: done Images: not applicable Referrals: not applicable Vaccines due: Covid, Flu, Hep B, and HPV Screenings: pap smear Overdue care gaps: SBIRT, SDOH, PHQ-9, MAGUI-7, Oral health screening, Disability screen, and Tobacco documented in this encounter Plan of Treatment Upcoming Encounters Date Type Department Care Team (Late st Contact Info) Description 06/04/2025 10:30 AM EDT Procedure Visit [facility] [address] [place] [address] Mela Chin CNM [address] [place] [address] documented as of this encounter Visit Diagnoses Not on filedocumented in this encounter Care Teams Cashier Checker Relationship Specialty Start Date End Date Carolyn Robert FNP [address] [place] [address] PCP - General Family Medicine 05/06/25 documented as of this encounter
[2025-05-07 18:47] LABS: Alanine Aminotransferase 19 U/L (0-31); Albumin Level 4.6 g/dL (3.5-5.0); Alkaline Phosphatase 80 U/L (39-117); Anion Gap 11 (12-20); Aspartate Amino Transferase 31 U/L (5-31); Blood Urea Nitrogen 9 mg/dL (9-16); Calcium 8.8 mg/dL (8.4-10.2); Carbon Dioxide 23 mmol/L (22-29); Chloride 109 mmol/L (96-108); Cholesterol 146 mg/dL (<200); Estimated Glomerular Filt Rate > 60; HDL Cholesterol 48 mg/dL (>40); Potassium 3.8 mmol/L (3.3-5.1); Sodium 139 mmol/L (135-145); Thyroid Stimulating Hormone 2.88 uIU/mL (0.32-4.0); Total Protein 8.5 g/dL (6.5-8.0); Triglycerides 68 mg/dL (<150)
[2025-05-08 08:36] LABS: HBS Num1 0.16 mIU/mL (0-7.99); HBc Num1 0.10 S/CO (0.00-0.79); HBsAGNum1 0.39 S/CO (0.00-0.99); HIV Num 1 0.06 S/CO (0.00-0.99); Hepatitis B Surface Antigen Negative (Negative); ~HepC Num1 0.49 S/CO (0.00-0.79); ~Hepatitis B Surface Antibody NONREACTIVE (Nonreactive); ~Hepatitis C Antibody Nonreactive (Nonreactive)
== END 2025-05-07 13:51 | disposition home or self-care (01) ==
LOC: HO.HHCL 13:50
PROVIDERS: PCP Nurse Practitioner Family; Visit Provider Nurse Practitioner Family
DX: Z00.00 Encounter for general adult medical examination without abnormal findings (principal); Z11.59 Encounter for screening for other viral diseases; Z11.4 Encounter for screening for human immunodeficiency virus [HIV]; Z20.2 Contact with and (suspected) exposure to infections with a predominantly sexual mode of transmission
CPT/HCPCS: 80053; 80061; 83036; 84443; 85025; 86704; 86706; 86803; 87340; 87389; 87491; 87591

== ENCOUNTER 2025-06-04 11:07 | Outpatient (REF) | payer MEDICAID, SELFPAY ==
[2025-06-04 14:00] LABS: Ferritin 10 ng/mL (10-122)
[2025-06-04 14:10] LABS: Folate 11.9 ng/mL (> or = 4.0); Vitamin B12 300 pg/mL (200-900)
[2025-06-05 04:05] LABS: Syphilis Screen Nonreactive (Nonreactive)
== END 2025-06-04 11:08 | disposition home or self-care (01) ==
LOC: HO.HHCL 11:07
PROVIDERS: Nurse Practitioner Family; Visit Provider Advanced Practice Midwife
DX: Z01.84 Encounter for antibody response examination (principal); D72.829 Elevated white blood cell count, unspecified; D75.839 Thrombocytosis, unspecified; D64.9 Anemia, unspecified
CPT/HCPCS: 36415; 82607; 82728; 82746; 85652; 86140; 86780; 88175

== ENCOUNTER 2025-06-05 06:15 | Outpatient (REF) | payer MEDICAID, SELFPAY ==
--- OUTSIDE RECORDS SUMMARY | 2025-06-15 15:13 | XMS_ITS | Encounter Summary ---
Author Organization [employer] Address [address] [facility] [address] [place] [address] Care Team Providers Care Strategic Sourcing Specialist Name Role Phone Carolyn Robert FOX Primary Care Provider Encounter Details Date Type Department Care Team ([facility] Contact Info) Description 06/04/2025 Results Follow-Up [facility] MEDICINE [address] [place] [address] Mela Chin CNM [address] [place] [address] C-reactive Protein Social History Tobacco Use Types Packs/Day Years [...] as of this encounter Miscellaneous Notes * Result Encounter Note - Mela Chin CNM - 06/04/2025 1:51 PM EDT FYI documented in this encounter Plan of Treatment Upcoming Encounters Date Type Department Care Team (Late st Contact Info) Description 07/06/2025 11:00 AM EST Immunization [facility] MED[facility]INE [address] [place] [address] documented as of this encounter Visit Diagnoses Not on filedocumented in this encounter Additional Health Concerns Assessment Noted Time PHQ-9 Depression Total Score: 2 05/07/20 1:44 PM EDT documented as of this encounter Care Teams Strategic Sourcing Specialist Relationship Specialty Start Date End Date Carolyn Robert FNP [address] [place] [address] PCP - General Family Medicine 05/06/25 documented as of this encounter
--- OUTSIDE RECORDS SUMMARY | 2025-06-15 15:13 | XMS_ITS | Encounter Summary ---
Author Organization [facility] Address [address] [place] [address] Care Team Providers Care Drop Board Man Name Role Phone Unknown Primary Care Provider [phone] Ami Mancuso MD Unavailable [phone] Encounter Details Date Type Department Care Team (Late st Contact Info) Description 02/20/2020 Abstract [facility] Maternal Medicine [place] [address] [facility] [address] [place] [id number] Kim Crane, MS,[facility] [place] [address] [place] [address] Social History Tobacco Use Types Packs/Day Years [...] on filedocumented in this encounter Care Teams Drop Board Man Relationship Specialty Start Date End Date Unknown Unknow Provider Address PCP - General 02/20/20 Ami Mancuso MD [address] [place] [id number] PCP - OBGYN Obstetrics and Gynecology 02/20/20 documented as of this encounter
--- OUTSIDE RECORDS SUMMARY | 2025-06-15 15:14 | XMS_ITS | Clinical Summary ---
Author Organization [facility] Address [address] [place] [address] Care Team Providers Care Facility Maintenance Supervisor Name Role Phone Unknown Primary Care Provider [phone] Ami Mancuso MD Unavailable [phone] Allergies No known active allergies Medications vitamin [...] 02/20/2020 Overview (02/20/2020): 02/20/2020 new transfer from [facility] 03[facility]13/20. H/o prior c/s x 2 and hydrocephalus, needs repeat. Case request placed today, has new OB with us next week [facility] Maternal care due to low tra nsverse uterine scar from previous delivery 02/20/2020 Overview (02/20/2020): Added automatically from request for surgery [id number] hydrocephalus affectin g management of mother in foley 02/20/2020 Overview (02/20/2020): Added automatically from request for surgery [id number] Social History Tobacco Use Types Packs/Day Years [...] Most Recently Relevant to Health Maintenance Insurance [facility] Advance Directives * Full Code (Latest Code Status on File) Date Activated Date Inactivated Comments 02/25/2020 5:28 PM Care Teams Facility Maintenance Supervisor Relationship Specialty Start Date End Date Unknown Unknow Provider Address PCP - General 7/10/20 Ami Mancuso MD [address] [place] [id number] PCP - OBGYN Obstetrics and Gynecology 02/20/20
--- OUTSIDE RECORDS SUMMARY | 2025-06-15 15:14 | XMS_ITS | Encounter Summary ---
Author Organization [employer] Address [address] [facility] [address] [place] [address] Care Team Providers Care Water Quality Specialist Name Role Phone Carolyn Robert FOX Primary Care Provider [phone] Encounter Details Date Type Department Care Team ([facility] Contact Info) Description 06/09/2025 Results Follow-Up [facility] MEDICINE [address] [place] [address] Mela Chin CNM [address] [place] [address] Pap Smear Social History Tobacco Use Types Packs/Day Years [...] AM EDT documented as of this encounter Plan of Treatment Upcoming Encounters Date Type Department Care Team (Late st Contact Info) Description 07/06/2025 11:00 AM EST Immunization [facility] MED[facility]INE [address] [place] [address] documented as of this encounter Visit Diagnoses Not on filedocumented in this encounter Additional Health Concerns Assessment Noted Time PHQ-9 Depression Total Score: 2 05/07/20 1:44 PM EDT documented as of this encounter Care Teams Water Quality Specialist Relationship Specialty Start Date End Date Carolyn Robert FNP [address] [place] [address] PCP - General Family Medicine 05/06/25 documented as of this encounter
--- OUTSIDE RECORDS SUMMARY | 2025-06-15 15:14 | XMS_ITS | Clinical Summary ---
Author Organization [employer] Address [address] [place] [address] 7[place] [address] Care Team Providers Care Parking Meter Attendant Name Role Phone Carolyn Robert FOX Primary Care Provider [phone] Allergies No known active allergies Medications No known medications Active Problems Problem Noted Date Diagnosed Date Thrombocytosis 05/08/2025 Leukocytosis 05/08/2025 Anemia 05/08/2025 Class 2 obesity with body ma ss index (BMI) of 39.0 to 39.9 in adult 05/08/2025 Encounters Date Type Department Care Team Description 06/09/2025 Results Follow-Up [facility] [address] [place] [phone] Supa De Guzman CNM Pap Smear 06/04/2025 10:30 AM EDT Procedure Visit [facility] [address] [place] [phone] Supa De Guzman CNM Cervical cancer screening (Primary Dx); Menorrhagia with regular cycle; Need for prophylactic vaccination and inoculation against viral hepatitis; Screening examination for venereal disease; Encounter for immunization 06/04/2025 Results Follow-Up [facility] [address] [place] [phone] Supa De Guzman CNM C-reactive Protein 06/04/2025 Travel 06/03/2025 Travel 06/03/2025 Telephone [facility] [address] [place], [place] [phone] Elisabeth Sanchez MA 06/02/2025 Telephone [facility] [address] [place], [place] [phone] Bere Ha[address]on RD Diabetes 05/11/[address] [phone] Carolyn Robert FNP Results; Lab Orders 05/07/2025 1:00 PM EDT Office Visit [address] [phone] Carolyn Robert FNP Adult wellness visit (Primary Dx); Encounter for immunization; Class 2 obesity with body mass index (BMI) of 39.0 to 39.9 in adult, unspecified obesity type, unspecified whether serious comorbidity present; Dietary counseling; Exercise counseling; Anemia, unspecified type; Leukocytosis, unspecified type; Thrombocytosis 05/07/2025 Travel 05/06/[address] [phone] Carolyn Robert FNP CHARTPREP 04/30/2025 Patient Outreach [address] [phone] Carolyn Robert FNP Pre-visit Planning ((Unable to reach for PVP screening, LVM) to be completed in office ) 04/07/[address] [address] Tucker Mcnair MD from Last 3 Months Immunizations Immunization Administration Dates Next Due HepB-CpG 06/04/2025 Influenza injectable quadrivalent preservative f ree 06/25/2022 MMR 06/24/2022 Tdap 2022 Family History Medical History Relation Name Comments Diabetes Brother Kidney disease Brother Eczema Daughter Diabetes Mother Hyperlipidemia Mother Hypertension Mother Kidney disease Mother Uterine cancer Mother's Sister Diabetes Sister Kidney disease Sister Eczema Son 1 Relation Name Status Comments Brother Daughter Mother Mother's Sister Sister Son 1 Son 2 Kayode Social History Tobacco Use Types Packs/Day Years [...] Q2 Not on file 05/07/2025 Comments Unknown Intention Date Recorded No desire to become (finding) 1 Sex and Gender Information Value Date Recorded Sex Assigned at Female 06/12/2022 10:40 AM EDT Legal Sex Female 10:40 AM EDT Gender Identity Female 06/12/2022 10:40 AM EDT Sexual Orientation Straight 06/12/2022 10 :40 AM EDT Last Filed Vital Signs Vital Sign Reading Time Taken Comments Blood Pressure 110/78 06/04/2025 10:41 AM EDT Pulse 115 06/04/2025 10:41 AM EDT Temperature 36.2 C (97.2 F) 06/04/2025 10:41 AM EDT Respiratory Rate 16 06/04/2025 10:41 AM EDT Oxygen Saturation 100% 06/04/2025 10:41 AM EDT Inhaled Oxygen Concentration - - Weight 103 kg (227 lb 3.2 oz) 06/04/2025 10:41 A M EDT Height 160.5 cm (5' 3.19 ) 05/07/2025 1:01 PM ED T Body Mass Index 40.01 05/07/2025 1:01 PM EDT Plan of Treatment Upcoming Encounters Date Type Department Care Team (Late st Contact Info) Description 07/06/2025 11:00 AM EST Immunization [facility] [address] [place], [place] [phone] Health Maintenance Due Date Last Done Comments HPV Vaccines (1 - 3-dose series) 2011 COVID-19 Vaccine (1 - 2023-2 5 season) 2025 Influenza Vaccine (#1) 2025 06/25/2022 Hepatitis B Vaccines (2 of 2 - CpG 2-dose series) 07/02/2025 06/04/2025 Alcohol/Substance Use Screening 05/07/2026 05/07/2025 Depression Screening 05/07/2026 05/07/2025, 05/07/2025 SDOH Screening 05/07/2026 05/07/2025 Disability Screening 06/03/2026 06/03/2025 Family Planning (PISQ) 06/04/2026 06/04/2025 Tobacco Screening 06/04/2026 06/04/2025 Pap Smear 06/04/2028 06/04/2025 Lipid Panel 05/07/2030 05/07/2025 DTaP/Tdap/Td Vaccines (2 - T d or Tdap) 2032 2022 Zoster Vaccines (1 of 2) 2046 RSV Patients and Patients Aged 60 years or older (1 - 1-dose 75+ series) 2071 HIV Screening Completed 05/07/2025 Hepatitis C Screening Completed 05/07/2025 HIB Vaccines Aged Out No longer eligi [...] Procedure Name Priority Date/Time Associated Diagnosis Comments PAP SMEAR Routine 06/04/2025 11:15 AM EDT Cervical cancer screening SYPHILIS SCREEN Routine 06/04/2025 11:13 AM EDT Screening examination for venereal disease C-REACTIVE PROTEIN Routine 06/04/2025 11 :13 AM EDT Leukocytosis, unspecified type Thrombocytosis VITAMIN B12/FOLATE, SERUM PANEL Routine 06/04/2025 11:13 AM EDT Anemia, unspecified type FERRITIN Routine 06/04/2025 11:13 AM EDT Anemia, unspecified type SED RATE BY MODIFIED WESTERGREN Routine 06/04/2025 11:13 AM EDT Leukocytosis, unspecified type Thrombocytosis HEMOGLOBIN A1C Routine 05/07/2025 1:55 PM EDT Adult wellness visit LIPID PANEL, STANDARD Routine 05/07/2025 1:55 PM EDT Adult wellness visit HIV 1/2 ANTIGEN/ANTIBODY, FOURTH GENERATION W/RFL Routine 05/07/2025 1:55 PM EDT Adult wellness visit CBC WITH AUTO DIFFERENTIAL Routine 05/07/2025 1:55 PM EDT Adult wellness visit HEPATITIS C AB W/REFL TO HCV RNA, QN, PCR Routine 05/07/2025 1:55 PM EDT Adult wellness visit HEPATITIS B SURFACE ANTIGEN, EIA Routine 05/07/2025 1:55 PM EDT Adult wellness visit HEPATITIS B SURFACE ANTIBODY, QUALITATIVE Routine 05/07/2025 1:55 PM EDT Adult wellness visit TSH Routine 05/07/2025 1:55 PM EDT Adult wellness visit HEPATITIS B CORE AB TOTAL Routine 05/07/2025 1:55 PM EDT Adult wellness visit COMPREHENSIVE METABOLIC PANEL Routine 05/07/2025 1:55 PM EDT Adult wellness visit CHLAMYDIA/TRICHOMONAS/ NEISSERIA GONORRHOEAE, PCR, URINE Routine 05/07/2025 1:55 PM EDT Adult wellness visit from Last 3 Months Results * Pap Smear (06/04/2025 11:15 AM EDT) Swab Cervix uteri structure / Unknown 06/04/2025 11:15 AM EDT 06/05/2025 6:15 AM EDT [facility] - 06/09/2025 1:23 PM EDT ----- ------- Name: RoxyDana Age/Sex: 30/F : 1995 Unit#: [id number] Yehuda Dr: Re06/04/25 Status: PRE REF Location: [facility] Disch: ----- ------- SPEC : [id number] RECD: 06/05/25 STATUS: NICOLE NORIEGA NUM: [id number] ENMANUEL: 06/04/25-[address]: SUPA DE GUZMAN CNM ENTERED: 06/05/25 SP TYPE: Pap Smr OTHR DR: ORDERED: Pap Smear Interpretation Satisfactory for evaluation. Negative for intraepithelial lesion or malignancy. No endocervical cells seen. Fungal organisms consistent with Brianna species. Clinical Information LMP: Unk Previous PAP test: Unk Other surgery: Other history: Material Received ThinPrep-Cervical ----- ------- Signed (signature on file) CAROL Santos (ASCP) 06/09/25 1323 ----- ------- END OF REPORT Supa KAUR LAB CYTOLOGY ORDERABLES F inal Result [facility] [address] [place] [phone] * Syphilis Screen (06/04/2025 11:13 AM EDT) Syphilis Screen Nonreactive Nonreactive [facility] Blood Venous blood specimen / Unknown 06/04/2025 11:13 AM EDT 06/04/2025 12:59 PM EDT Supa De Guzman [facility] LAB BLOOD ORDERABLES Leda l Result [facility] [address] [place] [phone] * Vitamin B12/Folate, Serum Panel (06/04/2025 11:13 AM EDT) Vitamin B12 300 200 - 900 pg/mL [facility] Comment:NORMAL 200-900 PG/ML INDETERMINATE 160-199 PG/ML DEFICIENT < 160 PG/ML Folate 11.9 > or = 4.0 ng/mL [facility] Comment:Reference Values:> o r = 4.0 ng/mL< 4.0 ng/mL suggests folate deficiency Methotrexate, aminopterin and folinic acid(leucovorin) are chemotherapeutic agents whose molecularstructures are similar to folate; therefore, the Architectfolate assay cannot be used for patients using these drugs. Blood Venous blood specimen / Unknown 06/04/2025 11:13 AM EDT 06/04/2025 12:59 PM EDT us Carolyn [employer] LAB BLOOD ORDERABLES Final Res ult Performing Organization Address [facility]/ZIP Co de Phone Number [facility] [address] [place] [phone] * (ABNORMAL) Sed Rate by Modified Phaniergren (06/04/2025 11:13 AM EDT) Erythrocyte Sedimentation Rate 23(H) 0 - 20 MM/HR [facility] Comment:Patients with polycy themia and many hemoglobin abnormalitiesmay have depressed sed rates whereas patients with anemiamay have elevated sed rates. Blood Venous blood specimen / Unknown 06/04/2025 11:13 AM EDT 06/04/2025 12:59 PM EDT us Carolyn [employer] LAB BLOOD ORDERABLES Final Res ult Performing Organization Address City/[facility]/ZIP Co de Phone Number [facility] [address] [place] [phone] * (ABNORMAL) C-reactive Protein (06/04/2025 11:13 AM EDT) [facility] C Reactive Protein 0.54(H) < or = 0.50 mg/dL [facility] Blood Venous blood specimen / Unknown 06/04/2025 11:13 AM EDT 06/04/2025 12:59 PM EDT [facility] LAB BLOOD ORDERABLES Final Res ult Performing Organization Address City/[facility]/ZIP Co de Phone Number [facility] [address] [place] [phone] * Ferritin (06/04/2025 11:13 AM EDT) [facility] Ferritin 10 10 - 122 ng/mL [facility] Blood Venous blood specimen / Unknown 06/04/2025 11:13 AM EDT 06/04/2025 12:59 PM EDT [facility] LAB BLOOD ORDERABLES Final Res ult Performing Organization Address [facility] Co de Phone Number [facility] [address] [place] [phone] * Chlamydia/N. Gonorrhoeae, PCR, Urine (05/07/2025 1:55 PM EDT) [facility] CT PCR, Urine NOT DETECTED Not Detect. [facility] Comment:A not detected test result [...] NG PCR, Urine NOT DETECTED Not Detect. [facility] Comment:A not detected test result [...] EDT 05/07/2025 4:00 PM EDT Carolyn Robert [facility] LAB URINE ORDERABLES Final Res ult [facility] [address] [place] [phone] * (ABNORMAL) CBC auto differential (05/07/2025 1:55 PM EDT) White Blood Count 13.8(H) 4.8 - 10.8 X10*3/uL [facility] Red Blood Count 4.78 4.20 - 5.50 X10*6/uL [facility] Hemoglobin 8.9(L) 12.0 - 16.0 g/dl [facility] Hematocrit 31.4(L) 37.0 - 47.0 % [facility] Mean Corpuscular Volume 65.7(L) 80.0 - 98.0 fL [facility] Mean Corpuscular Hemoglobin 18.6(L) 27.0 - 33.0 pg [facility] Mean Corpuscular HGB Conc 28.3(L) 31.0 - 35.0 g/dl [facility] Red Cell Distribution Width 19.1(H) 11.0 - 16.0 % [facility] Platelet Count 553(H) 160 - 400 X10*3/uL [facility] Mean Platelet Volume 10.4 9.4 - 12.3 fL [facility] Neutrophils Percent Auto 69.8 45 - 73 % [facility] Imm Gran Pct Auto 0.3 0.0 - 0.4 % [facility] Lymphocytes Percent Auto 23.3 20 - 40 % [facility] Monocytes Percent Auto 5.4 2 - 11 % [facility] Eosinophils Percent Auto 0.6 0 - 4 % [facility] Basophils Percent Auto 0.6 0 - 2 % [facility] NRBC Pct Auto 0.0 0.0 - 0.2 /100WBC [facility] Neutrophils Absolute Auto 9.7(H) 2.0 - 8.3 x10*3/uL [facility] Imm Gran Abs Auto 0.04(H) 0.00 - 0.03 X10*3/uL [facility] Lymphocytes Absolute Auto 3.2 1.2 - 4.9 X10*3/uL [facility] Monocytes Absolute Auto 0.7 0.1 - 1.2 X10*3/uL [facility] Eosinophils Absolute Auto 0.1 0.0 - 0.4 X10*3/uL [facility] Basophils Absolute Auto 0.1 0.0 - 0.2 X10*3/uL [facility] NRBC Abs Auto 0.000 0.0 - 0.012 X10*3/uL [facility] Blood Venous blood specimen / Unknown 05/07/2025 1:55 PM EDT 05/07/2025 5:56 PM EDT us Carolyn Robert [employer] LAB BLOOD ORDERABLES Final Res ult [facility] [address] [place], [place] [phone] * Hepatitis C Antibody with Reflex to HCV, RNA, Quantitative, Real-Time PCR (05/07/2025 1:55 PM EDT) Hepatitis C Antibody Nonreactive Nonreactive [facility] Comment:Antibodies to HCV no t detected; does not exclude early acuteHCV infection. Blood Venous blood specimen / Unknown 05/07/2025 1:55 PM EDT 05/07/2025 5:56 PM EDT [employer] LAB BLOOD ORDERABLES Final Res ult Performing Organization Address [facility]/ZIP Co de Phone Number [facility] [address] [place] [phone] * Hepatitis B surface antigen, EIA (05/07/2025 1:55 PM EDT) Hepatitis B Surface Ag Negative Negative [facility] Blood Venous blood specimen / Unknown 05/07/2025 1:55 PM EDT 05/07/2025 5:56 PM EDT [employer] LAB BLOOD ORDERABLES Final Res ult Performing Organization Address [facility] Co de Phone Number [facility] [address] [place] [phone] * Hepatitis B Core Antibody, Total (05/07/2025 1:55 PM EDT) Hepatitis B Core Antibody Nonreactive Nonreactive [facility] Blood Venous blood specimen / Unknown 05/07/2025 1:55 PM EDT 05/07/2025 5:56 PM EDT [facility] LAB BLOOD ORDERABLES Final Res ult Performing Organization Address [facility] Co de Phone Number [facility] [address] [place] [phone] * HIV-1/2 Antigen and Antibodies, Fourth Generation, with Reflexes (05/07/2025 1:55 PM EDT) Pathologist [facility] HIV AB/AG Nonreactive Nonreactive [facility] Comment:HIV-1 p24 Ag and/or HIV-1/HIV-2 Ab not detected.A test result that is nonreactive does not exclude thepossibility of exposure to or infection with HIV-1 and/orHIV-2. Nonreactive results in this assay for individualswith prior exposure to HIV-1 and/or HIV-2 may be due toantigen and antibody levels that are below the limit ofdetection of this assay.The [employer] HIV Ag/Ab Combo assay result andsupplemental assay results should be interpreted inconjunction with the patient's clinical presentation,history and other laboratory results. If the results areinconsistent with clinical evidence, additional testing issuggested to confirm the result. Blood Venous blood specimen / Unknown 05/07/2025 1:55 PM EDT 05/07/2025 5:56 PM EDT [facility] LAB BLOOD ORDERABLES Final Res ult Performing Organization Address City/[facility]/ZIP Co de Phone Number [facility] [address] [place] [phone] * Hepatitis B Surface Antibody, Qualitative (05/07/2025 1:55 PM EDT) Pathologist [facility] ~Hepatitis B Surface Antibody NONREACTIVE Nonreactive [facility] Comment:Nonreactive: < 8.00 mIU/mL Blood Venous blood specimen / Unknown 05/07/2025 1:55 PM EDT 05/07/2025 5:56 PM EDT [facility] LAB BLOOD ORDERABLES Final Res ult [facility] [address] [place] [phone] * TSH (05/07/2025 1:55 PM EDT) Thyroid Stimulating Hormone 2.88 0.32 - 4.0 uIU/mL [facility] Comment:Note: A sustained TS H level above 2.5 uIU/mL may warrant further investigation. TSH 3rd Generation ([facility]) Blood Venous blood specimen / Unknown 05/07/2025 1:55 PM EDT 05/07/2025 5:56 PM EDT [facility] Final Res ult Performing Organization Address City/[facility]/ZIP Co de Phone Number [facility] [address], [place] [phone] * Hemoglobin A1c (05/07/2025 1:55 PM EDT) Hemoglobin A1c 4.9 <6.0 % [facility] Comment:Hemoglobin A1C Refer ence Range Adults: 4.8 - 6.0 % Non diabetic: < 6.0 % Goal: < 7.0 %Additional Action Suggested: > 8.0 %Note: Hemoglobin A1c results are invalid for patients with abnormal amounts of HbF. Blood transfusions may impact the HbA1c concentration in the patient sample. Estimated Average Glucose 94 mg/dL [facility] Comment:eAG = Estimated ave rage glucose which is %A1C expressed asaverage glucose, using the formula of the [id number] Glucose study (ADAG), Diabetes Care, Vol.31,#8,Mar. 2007 Blood Venous blood specimen / Unknown 05/07/2025 1:55 PM EDT 05/07/2025 5:56 PM EDT [employer] [facility] LAB BLOOD ORDERABLES Final Res ult Performing Organization Address City/[facility]/ZIP Co de Phone Number [facility] [address] [place] [phone] * Lipid Panel, Standard (05/07/2025 1:55 PM EDT) Triglycerides 68 <150 mg/dL [facility] Comment:Desirable Triglyceri de: less than 150 mg/dLBorderline High Triglyceride 150-199 mg/dLHigh Triglyceride: 200-499 mg/dLVery High Triglyceride: greater than or equal to 5OO mg/dL Cholesterol 146 <200 mg/dL [facility] Comment:Desirable Cholestero l: less than 200 mg/dLBorderline High Cholesterol: 200-239 mg/dLHigh Cholesterol: greater than 239 mg/dL LDL Cholesterol Calculated 85 <100 mg/dL [facility] Comment:Desirable LDL: less than 100 mg/dLNear Optimal/Above Optimal LDL: 110- 129 mg/dLBorderline High LDL: 130-159 mg/dLHigh LDL: 160-189 mg/dLVery High LDL: greater than or equal to 190 mg/dL HDL Cholesterol 48 >40 mg/dL [facility] Comment:Desirable HDL: great er than 40 mg/dL Note: This HDL assay may give artificially low results in patients with liver disease. Blood Venous blood specimen / Unknown 05/07/2025 1:55 PM EDT 05/07/2025 5:56 PM EDT us Carolyn Robert [employer] LAB BLOOD ORDERABLES Final Res ult [facility] [address] [place] [phone] * (ABNORMAL) Comprehensive Metabolic Panel (05/07/2025 1:55 PM EDT) Sodium 139 135 - 145 mmol/L [facility] Potassium 3.8 3.3 - 5.1 mmol/L [facility] Chloride 109(H) 96 - 108 mmol/L [facility] Carbon Dioxide 23 22 - 29 mmol/L [facility] Anion Gap 11(L) 12 - 20 [facility] Urea Nitrogen (BUN) 9 9 - 16 mg/dL [facility] Creatinine, Serum 0.70 0.5 - 1.4 mg/dL [facility] Estimated Glomerular Filt Rate >60 [facility] Comment:Chronic Kidney Disea se: Estimated GFR < 60 mL/min/1.06f2Vmdmze Kidney Disease: Estimated GFR < 15 mL/min/1.73m2 Glucose 82 60 - 115 mg/dL [facility] Calcium 8.8 8.4 - 10.2 mg/dL [facility] Bilirubin, Total 0.4 0.0 - 1.0 mg/dL [facility] Aspartate Amino Transferase 31 5 - 31 U/L [facility] Alanine Aminotransferase 19 0 - 31 U/L [facility] Total Protein 8.5(H) 6.5 - 8.0 g/dL [facility] Albumin Level 4.6 3.5 - 5.0 g/dL [facility] Alkaline Phosphatase 80 39 - 117 U/L [facility] Blood Venous blood specimen / Unknown 05/07/2025 1:55 PM EDT 05/07/2025 5:56 PM EDT Carolyn Robert [employer] LAB BLOOD ORDERABLES Final Res ult [facility] [address] [place] [phone] from Last [address] [place] [address] [address] C3 Care Teams Parking Meter Attendant Relationship Specialty Start Date End Date Carolyn Robert FNP [address] [place] [phone] PCP - General Family Medicine 05/06/25
== END 2025-06-05 06:16 | disposition home or self-care (01) ==
LOC: HO.LNP 06:15
PROVIDERS: Visit Provider Advanced Practice Midwife
DX: Z12.4 Encounter for screening for malignant neoplasm of cervix (principal)
CPT/HCPCS: 88175